=== PATIENT | female | born 1975 | race African-American/Black ===

== ENCOUNTER 2017-03-28 10:51 | Emergency (ER) | payer OTHER | END 2017-03-28 12:50 | disposition home or self-care (01) | LOC: ERS 10:51 | DX: M54.5 Low back pain (principal); M32.9 Systemic lupus erythematosus, unspecified; E03.9 Hypothyroidism, unspecified; F17.210 Nicotine dependence, cigarettes, uncomplicated; Z79.899 Other long term (current) drug therapy | CPT/HCPCS: 99283 ==